=== PATIENT | female | born 1980 ===

== ENCOUNTER → 2016-06-11 | Outpatient (REF) | payer BC | LOC: M LAB REF 17:06 | PROVIDERS: ATTEND Family Medicine | DX: Z12.4 Encounter for screening for malignant neoplasm of cervix (principal); R35.0 Frequency of micturition | CPT/HCPCS: 87086; G0123 ==

== ENCOUNTER → 2017-10-07 | Outpatient (REF) | payer BC | LOC: M LAB REF 17:07 | DX: N39.0 Urinary tract infection, site not specified (principal) | CPT/HCPCS: 87186 ==